=== PATIENT | male | born 1955 | race Caucasian/White ===

== ENCOUNTER 2018-10-09 09:55 | Day surgery (SDC) | payer MEDICARE, BC ==
[2018-10-09] MEDS ORDERED: LIDOCAINE 2% MDV (20MG/ML) 20ML VIAL IV ONE (09:56)
[2018-10-09] MEDS ORDERED: PROPOFOL 10 MG/ML VIAL IV ONE (09:56)
[2018-10-09] MEDS ORDERED: FENTANYL PF 100MCG/2ML VIAL IV ONE (09:56)
--- NOTE | 2018-10-12 08:11 | Operative Note ---
SURGEON: Panchito Barajas MD OPERATION: 1. ESOPHAGOGASTRODUODENOSCOPY. 2. COLONOSCOPY. INDICATIONS: This is a 63-year-old male with history of dysphagia and family history of colon cancer and personal history of colon polyps who presented for both esophagogastroduodenoscopy and surveillance colonoscopy. POSTOPERATIVE DIAGNOSES: 1. Normal esophagus with no strictures, status post Brown dilatation to 60- Chinese and biopsies to rule out eosinophilic esophagitis. 2. A 3 mm sigmoid colon polyp that was removed by cold biopsy forceps. 3. Otherwise normal study. ANESTHESIA: Sedation is per Anesthesia. Pulse oximetry was monitored throughout the procedure to maintain O2 saturation of 90% or greater. Supplemental oxygen was administered via nasal cannula. Cardiac and vital signs were monitored throughout the duration of the procedure, and they were stable. The procedures of esophagogastroduodenoscopy and colonoscopy and risks and benefits of the procedures, including the risk of bleeding and perforation, among others, were explained to the patient who voiced understanding and agreed to have the procedures done. Physical examination was performed, and the patient was found stable for sedation. PROCEDURE: The patient was placed in the left lateral position. Sedation was initiated. A plastic bite block was inserted into the oral cavity. The Olympus CBI393 gastroscope was introduced into the oral cavity and advanced to the proximal esophagus without difficulty. The esophageal mucosa was carefully examined upon introduction of the gastroscope. The proximal and mid and distal esophageal mucosa appeared normal. The gastroscope was then advanced into the stomach, and surveillance of the stomach revealed normal gastric fundus, body, and antrum. The gastroscope was then advanced to the descending duodenum without difficulty. The duodenal bulb and descending duodenum appeared normal. The gastroscope was then withdrawn into the stomach and retroflexion was performed. There were no other lesions noted. The gastroscope was then straightened and withdrawn while carefully examining the gastric and esophageal mucosa. No other lesions noted. Multiple mid esophageal biopsies were obtained. The patient remained with stable vital signs and a Brown dilator size 60-Chinese was then passed into the stomach with minimal resistance. Brown dilator was then withdrawn and the patient tolerated the procedure well without any immediate complications. He remained with stable vital signs and was repositioned for colonoscopy. A digital rectal exam was performed and showed some mild external hemorrhoids with no palpable rectal masses. An Olympus PCF-180AL colonoscope was then inserted into the rectum under direct visualization. It was advanced to the cecum without difficulty. The ileocecal valve and appendiceal orifice were identified and photographed. The colonic mucosa was carefully examined upon introduction of the colonoscope. There were no lesions noted. The ileocecal valve was intubated and terminal ileal mucosa was inspected for about 10 cm and it appeared normal. The colonoscope was then withdrawn while carefully examining the colonic mucosal surfaces. The cecum, ascending colon, transverse colon, descending colon, and rectum appeared normal. In the sigmoid colon, however, was a 3 mm sessile polyp that was noted and was removed by cold biopsy forceps. Retroflexion was normal. The colonoscope was then withdrawn and the procedure was terminated. The patient tolerated the procedure well without any immediate complications. The patient remained with stable vital signs and was transferred to the recovery room. RECOMMENDATIONS: 1. We will follow up on the biopsies. 2. He is to have repeat colonoscopy in 3 years or 5 years depending on the histology of the polyp. Thank you for allowing me to participate in the care of your patient. CC: Brittany VAZQUEZ
== END 2018-10-09 11:45 | disposition home or self-care (01) ==
LOC: HOP 09:55
PROVIDERS: ATTEND Internal Medicine Gastroenterology
DX: Z12.11 Encounter for screening for malignant neoplasm of colon (principal); Z86.010 Personal history of colon polyps; Z80.0 Family history of malignant neoplasm of digestive organs; D12.5 Benign neoplasm of sigmoid colon; Z87.19 Personal history of other diseases of the digestive system